=== PATIENT | male | born 1975 | race Caucasian/White ===

== ENCOUNTER 2024-11-27 00:34 | Emergency (ER) | payer BC ==
[~2024-11-27] VITALS: Ht 182.9 cm; Wt 94.0 kg
[2024-11-27 01:38] LABS: BASOPHILS % (AUTO) 0.4 % (0-1); EOSINOPHILS # (AUTO) 0.1 X10'3 (0-0.9); EOSINOPHILS % (AUTO) 1.4 % (0-6); HEMATOCRIT 49.3 % (42.0-52.0); LYMPHOCYTES # (AUTO) 2.5 X10'3 (1.1-4.8); MEAN CORPUSCULAR HEMOGLOBIN 30.7 PG (27.0-31.0); MEAN CORPUSCULAR HGB CONC 34.6 g/dL (33.0-36.5); MEAN CORPUSCULAR VOLUME 88.6 FL (78-98); MEAN PLATELET VOLUME 9.2 FL (7.4-10.4); MONOCYTES # (AUTO) 0.4 X10'3 (0-0.9); MONOCYTES % (AUTO) 5.8 % (2-12); NEUTROPHILS # (AUTO) 4.1 X10'3 (1.8-7.7); NEUTROPHILS % (AUTO) 57.4 % (42-75); PLATELET COUNT 158 X10'3 (140-440); RED BLOOD COUNT 5.56 X10'6 (4.70-6.10); RED CELL DISTRIBUTION WIDTH 13.8 % (11.5-14.5); WHITE BLOOD COUNT 7.1 X10'3 (4.5-11.0)
--- NOTE | 2024-11-27 01:42 | RADIOLOGY REPORT ---
CHEST RADIOGRAPH Indication: CP Technique: Single frontal view of the chest was obtained COMPARISON: None FINDINGS: Lines and Tubes: None. Left anterior chest wall dual lead cardiac pacing device. Lungs: Clear Pleura: No effusion. No pneumothorax. Cardiomediastinal contours: Unremarkable Bones: Unremarkable IMPRESSION: 1. No acute disease.
[2024-11-27 01:57] LABS: ALBUMIN 4.4 G/DL (3.4-5.0); ANION GAP 8 (8-16); BLOOD UREA NITROGEN 19 MG/DL (7-18); BUN/CREATININE RATIO 17.6 (10.0-20.0); CALCIUM 8.8 MG/DL (8.5-10.1); CHLORIDE 104 MMOL/L (99-107); CREATININE 1.08 MG/DL (0.60-1.10); GLUCOSE 93 MG/DL (70-104); SODIUM 141 MMOL/L (135-145); eCRCL 92 ML/MIN; eGFR 73 ML/MIN
[2024-11-27 02:02] LABS: POTASSIUM 2.9 MMOL/L (3.5-5.1)
--- NOTE | 2024-11-27 02:33 | Physician Documentation ---
History of Present Illness ~ Chief Complaint: Dizziness Stated Complaint: IRREGULAR HEART RATE Time Seen by MD: 02:31 OK to notify your PCP?: Yes HPI Patient presents to the emergency room for concerns of presyncopal feelings upon standing. He checked his pulse on pulse oximeter today and noted that it was in the 40s in his concerned that perhaps his device is malfunctioning. 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 He had his device checked recently and has 6-1/2 years left on its battery. Medication Reconciliation Allergies: Coded Allergies: No Known Allergies (Unverified , 11/27/24) Past Medical History Past Medical History: Arrhythmia, Psoriasis Past Surgical History: no surgical history Drug Use: none Lives In: Home Review of Systems All Other Systems at this time: Reviewed and Negative ROS All review of systems negative except as per HPI Physical Exam Vital Signs: Temperature: 96.8, Source: Temporal, Heart Rate: 60, Respiratory Rate: 17, BP: 150/94, Pulse Oximetry: 97, Weight: 94.000 Physical Exam General: Patient is awake, alert, oriented x4 in no acute distress and well appearing.~ Head: Normocephalic and atraumatic. Eyes: Conjunctival normal. EOMI. PERRL. ENT: Mucous membranes moist. Neck: Supple, trachea is midline. Chest: Clear to auscultation bilaterally without rales, rhonchi, or wheezes. There is no accessory muscle use or retractions. Cardiac: RRR without murmurs, gallops, or rubs. Progress Results/Orders Results/Orders Orders - OLEG WHITTEN MD Chest,Single View (11/27/24 00:50) Monitor (11/27/24 00:50) Saline Lock (11/27/24 00:50) Oxygen (11/27/24 00:50) Completed Orders - OLEG WHITTEN MD Chest,Single View (11/27/24 00:50) Cbc/Diff (11/27/24 00:50) BMP (11/27/24 00:50) Electrocardiogram (11/27/24 00:50) Hs Troponin I W Calculations (11/27/24 00:50) Hs Troponin I W Calculations (11/27/24 02:50) Hs Troponin I W Calculations (11/27/24 03:50) Potassium Cl Sr Tablet (K-Dur Tablet) (11/27/24 03:46) BMP (11/27/24 04:58) MG (11/27/24 05:12) Vital Signs 11/27/24 11/27/24 11/27/24 11/27/24 00:46 00:51 02:44 03:13 Temp 96.8 96.8 Pulse 60 61 Resp 17 18 B/P (MAP) 150/94 122/75 (91) Pulse Ox 99 97 98 O2 Delivery Room Air* O2 Flow Rate 0 0 FiO2 21 11/27/24 11/27/24 11/27/24 11/27/24 06:01 07:15 07:45 08:15 Temp 96.8 Pulse 62 84 69 70 Resp 16 17 16 15 B/P (MAP) 114/81 (92) 118/88 (98) 121/89 (100) 119/87 (98) Pulse Ox 98 97 97 98 O2 Flow Rate 0 0 0 0 11/27/24 11/27/24 11/27/24 08:45 09:15 10:43 Temp 98.3 Pulse 62 60 Resp 11 12 14 B/P (MAP) 137/95 (109) 118/85 (96) 132/99 Pulse Ox 99 100 98 O2 Flow Rate 0 0 Laboratory Tests Test 11/27/24 01:00 11/27/24 02:48 11/27/24 05:12 White Blood Count 7.1 Red Blood Count 5.56 Hemoglobin 17.0 Hematocrit 49.3 Mean Corpuscular Volume 88.6 Mean Corpuscular Hemoglobin 30.7 Mean Corpuscular Hemoglobin Concent 34.6 Red Cell Distribution Width 13.8 Platelet Count 158 Mean Platelet Volume 9.2 Neutrophils (%) (Auto) 57.4 Lymphocytes (%) (Auto) 35.0 Monocytes (%) (Auto) 5.8 Eosinophils (%) (Auto) 1.4 Basophils (%) (Auto) 0.4 Neutrophils # (Auto) 4.1 Lymphocytes # (Auto) 2.5 Monocytes # (Auto) 0.4 Eosinophils # (Auto) 0.1 Basophils # (Auto) 0.0 CBC Comment Miscellaneous Test Comments Sodium Level 141 138 Potassium Level 2.9 *L 3.0 *L Chloride Level 104 104 Carbon Dioxide Level 29.0 29.5 Anion Gap 8 5 L Blood Urea Nitrogen 19 H 17 Creatinine 1.08 0.86 Estimated GFR/1.73 m2 73 > 90 BUN/Creatinine Ratio 17.6 19.8 Glucose Level 93 92 Calcium Level 8.8 8.6 Troponin I High Sensitivity 66 60 53 Albumin 4.4 4.0 Chemistry Comments Troponin I High Sens Percent Delta 9 11 Troponin I Hi Sens Absolute Change -6 -7 Magnesium Level 2.1 EKG/XRAY/CT/US/VASC/MRI EKG : Additional Comment EKG interpreted by myself shows time of 0039, rate 61, paced rhythm, no further analysis secondary to paced rhythm Chest X-Ray : Additional Comments Exam: CHEST,SINGLE VIEW CHEST RADIOGRAPH Indication: CP Technique: Single frontal view of the chest was obtained COMPARISON: None FINDINGS: Lines and Tubes: None. Left anterior chest wall dual lead cardiac pacing device. Lungs: Clear Pleura: No effusion. No pneumothorax. Cardiomediastinal contours: Unremarkable Bones: Unremarkable IMPRESSION: 1. No acute disease. Medical Decision Making Additional Information The patient was signed out to me by previous ED physician. This is a 49-year-old male with a pacemaker in place who presented with near syncope. His pacemaker was interrogated and it is functioning properly. Patient was monitored in the ED for several hours. Lab workup does indicate significant hypokalemia with initially a potassium of 2.9. His potassium was initially replaced with 40 mEq use of potassium chloride which improved him only to 3.0. This is understandable given that oral potassium takes longer to take effect. We then gave him 10 mEq of IV potassium chloride followed by another 40 mEq of potassium chloride. At this point the patient is asymptomatic and doing much better. His vitals are now normal. He is stable and safe for discharge home. Remainder of his lab work is unremarkable. I do not believe we need to check his potassium once again as he can do this as an outpatient with his primary care physician. At this point he will be discharged home. Advised to return to the ED with any acutely worsening symptoms. Departure Disposition: HOME / SELF CARE / HOMELESS Impression: Primary Impression: Hypokalemia Additional Impression: Near syncope Condition: Improved Discharge Instructions: Hypokalemia, Near-Syncope Additional Instructions: Please continue your home medications. Please follow up closely with her primary care physician in the next 2-3 days for follow up and to recheck your potassium level. In the meantime continued to eat and drink as normal and take your potassium and magnesium supplements. Return to the ED immediately with any acutely returning or worsening symptoms. Referrals: NO PRIMARY CARE PROVIDER (PCP) Signature Scribe Signature: 1 Attestation: The note accurately reflects work and decisions made by me.Oleg Whitten MD 11/27/24 18:42 1 OLEG WHITTEN MD Nov 27, 2024 02:32 JONATHAN LOU MD Nov 27, 2024 09:55
[2024-11-27] MEDS: potassium Cl 20 mEq SR tablet PO STA ×2 (04:03→08:55)
--- NOTE | 2024-11-27 05:23 | ELECTROCARDIOGRAPH REPORT ---
[facility] Test Date: 2024-11-27 Test Time: 00:39:34 Pat Name: KRISTEL REYES Department: EMERGENCY ROOM Room: Gender: M [employer] Installer: KANA : 1975 Requested By: THUAN WEN Order Number: [id number] Reading MD: Measurements Intervals [place] Rate: 61 P: 0 MT: 183 QRS: -45 QRSD: 112 T: 162 QT: 393 QTc: 396 Interpretive Statements A-V dual-paced rhythm with some inhibition No further analysis attempted due to paced rhythm Please click the below link to view image of tracing.
[2024-11-27 05:47] LABS: ANION GAP 5 (8-16); BLOOD UREA NITROGEN 17 MG/DL (7-18); BUN/CREATININE RATIO 19.8 (10.0-20.0); CALCIUM 8.6 MG/DL (8.5-10.1); CHLORIDE 104 MMOL/L (99-107); CREATININE 0.86 MG/DL (0.60-1.10); GLUCOSE 92 MG/DL (70-104); SODIUM 138 MMOL/L (135-145); TOTAL CARBON DIOXIDE 29.5 MMOL/L (24-32); eCRCL 115 ML/MIN; eGFR > 90 ML/MIN
[2024-11-27 08:50] LABS: MAGNESIUM 2.1 MG/DL (1.5-2.4)
[2024-11-27] MEDS: potassium CL 10mEq/100ml bag 100 ML IV SCH (08:55)
[2024-11-27 09:15] VITALS: PULSE 60
[2024-11-27 10:43] VITALS: BP 132/99; RESP 14; TEMP 98.3; O2SAT 98
== END 2024-11-27 10:46 | disposition home or self-care (01) ==
LOC: ER 00:34
DX: E87.6 Hypokalemia (principal); R55 Syncope and collapse; Z95.0 Presence of cardiac pacemaker
CPT/HCPCS: 36415; 71045; 80048; 83735; 84484; 85025; 93005; 96365; 96366; 99285; J3480